=== PATIENT | female | born 1970 | race Caucasian/White ===

== ENCOUNTER → 2016-03-26 | Outpatient (REF) | payer OTHER | END | disposition home or self-care (01) | LOC: M SFHCWAGY 10:49 | PROVIDERS: ATTEND Nurse Practitioner Women's Health | DX: Z01.419 Encounter for gynecological examination (general) (routine) without abnormal findings (principal); Z11.51 Encounter for screening for human papillomavirus (HPV); R87.610 Atypical squamous cells of undetermined significance on cytologic smear of cervix (ASC-US) ==

== ENCOUNTER → 2016-03-29 | Outpatient (REF) | payer OTHER | END | disposition home or self-care (01) | LOC: M SFHCWAGY 14:23 | PROVIDERS: ATTEND Nurse Practitioner Women's Health | DX: R87.612 Low grade squamous intraepithelial lesion on cytologic smear of cervix (LGSIL) (principal) ==

== ENCOUNTER → 2016-08-06 | Outpatient (CLI) | payer BC, OTHER ==
--- NOTE | 2016-08-07 19:53 | REP ---
Whole body PET CT scan for restaging of B-cell lymphoma. Comparison as the whole-body PET scan dated 08/10/2015. The comparison study of 02/21/2016 is not available in the archive for review for reasons known to this examiner. Scanning is performed from skull base to the upper thighs. Neck and supraclavicular areas: There are no hypermetabolic foci. Chest: There are no hypermetabolic foci. Abdomen, pelvis and upper thighs: There are no hypermetabolic foci. There is physiologic radio labeling of the renal collecting systems. Impression: There are no hypermetabolic foci. The study is performed with 10.8 mCi of F 18 FDG Signed by Rolf Castillo MD 08/07/2016 07:45 P
== END ==
LOC: M PLARAD 11:18
PROVIDERS: ATTEND Internal Medicine Medical Oncology
DX: C85.10 Unspecified B-cell lymphoma, unspecified site (principal)
CPT/HCPCS: 78815; A9552

== ENCOUNTER → 2017-01-27 | Outpatient (CLI) | payer BC, OTHER ==
[~2017-01-27] MED LIST: NO MEDS
[2017-01-27 14:03] LABS: INR 1.01
[2017-01-27 14:36] LABS: ANION GAP 5 MEQ/L (8-16); BLOOD UREA NITROGEN 7 MG/DL (7-18); CALCIUM LEVEL 9.1 MG/DL (8.5-10.1); CARBON DIOXIDE LEVEL 31 MEQ/L (21-32); CHLORIDE LEVEL 107 MEQ/L (98-107); CREATININE FOR GFR 0.52 MG/DL (0.55-1.02); GLOMERULAR FILTRATION RATE > 60.0 (>58); GLUCOSE, FASTING 94 MG/DL (70-105); POTASSIUM SERUM 4.4 MEQ/L (3.5-5.1); SODIUM LEVEL 143 MEQ/L (136-145)
--- NOTE | 2017-01-27 16:01 | REP ---
Clinical: Ihbvkd-M-Ivcu removal . Comparison: 06/27/2015 . Technique: PA and lateral. Findings: The mediastinum and cardiac silhouette are normal. Right-sided Qufoon-F-Bqpy identified with tip in the SVC. The lung begum are clear and without acute consolidation, effusion, or pneumothorax. The skeletal structures are intact and normal. Impression: 1. No acute cardiopulmonary process. Signed by Patrice Wills MD 01/27/2017 03:52 P
== END ==
LOC: M SMT 10:47
PROVIDERS: ATTEND Thoracic Surgery (Cardiothoracic Vascular Surgery)
DX: Z01.818 Encounter for other preprocedural examination (principal)

== ENCOUNTER 2017-01-29 07:11 | Day surgery (SDC) | payer BC, OTHER ==
[~2017-01-29] VITALS: Ht 175.3 cm; Wt 72.6 kg
[2017-01-29] MEDS ORDERED: ceFAZolin 2 GM/D5W 50 ML IV BAG (J0690) As Ordered ONE (07:35)
[2017-01-29] MEDS ORDERED: MUPIROCIN 2% OINT 22 GM TUBE TOP ONE (07:45)
[2017-01-29] MEDS ORDERED: LR 1,000 ML IV ONE (08:00)
[2017-01-29] MEDS ORDERED: NS 1,000 ML IV ONE (08:00)
[2017-01-29] MEDS ORDERED: BUPIVACAINE LIPOSOME/PF 1.3% 20 ML VIAL (13.3MG/ML)(EXPAREL) As Ordered ONE (09:30)
[2017-01-29] MEDS ORDERED: MIDAZOLAM INJ 2 MG/2 ML VIAL (J2250) As Ordered ONE (09:52)
[2017-01-29] MEDS ORDERED: PROPOFOL 200 MG/20 ML VIAL As Ordered ONE ×2 (09:52→10:07)
[2017-01-29] MEDS ORDERED: fentaNYL 100 MCG/2 ML INJECTION (J3010) As Ordered ONE (09:52)
[2017-01-29 11:20] VITALS: BP 118/85
--- NOTE | 2017-01-29 11:44 | REP ---
CHEST, SINGLE VIEW: There is no evidence of acute infiltrate. No pleural effusion is seen. The heart is normal in size. The mediastinal silhouette is unremarkable. The visualized osseous structures are intact. IMPRESSION: No acute pulmonary disease. Signed by Rolf Simms MD 01/29/2017 01:54 P
--- NOTE | 2017-01-30 14:58 | RO ---
DATE OF PROCEDURE: 01/29/2017 PREPROCEDURE DIAGNOSIS: Lymphoma with completion of chemotherapy, retained Gsudhg-c-Jrij. POSTPROCEDURE DIAGNOSIS: Lymphoma with completion of chemotherapy, retained Xmajsy-p-Mama. PROCEDURE: Removal of right Tyamkj-a-Qqds. SURGEON: Dr. Jordon Farnsworth DREDGE PIPE INSTALLER: ANESTHESIA: DESCRIPTION OF PROCEDURE: Under satisfactory MAC anesthesia, the patient was prepped and draped in the usual sterile fashion. The Hjtkny-q-Oemf site was infiltrated with Exparel. Incision was made and carried down to the Amgedk-n-Lzgo. The neck of the Gspzfr-e-Kofz was easily found and the catheter secured. The catheter was removed without difficulty and the Tlmqnj-q-Zcdf was also removed from the pocket. The glistening capsule was then excised. After achieving adequate hemostasis, the subcutaneous tissue was closed with running #3-0 Vicryl suture, and the skin was closed with running #4-0 Monocryl subcuticular suture. The patient tolerated the procedure well and left the operating room in satisfactory condition for the recovery room.
== END 2017-01-29 11:24 | disposition home or self-care (01) ==
LOC: M SDC 07:11
PROVIDERS: ATTEND Thoracic Surgery (Cardiothoracic Vascular Surgery)
DX: C85.90 Non-Hodgkin lymphoma, unspecified, unspecified site (principal); Z45.2 Encounter for adjustment and management of vascular access device; Z92.21 Personal history of antineoplastic chemotherapy
CPT/HCPCS: 36590; 71010; J0690; J2250; J3010

== ENCOUNTER → 2017-04-01 | Outpatient (REF) | payer OTHER ==
[2017-04-04 14:13] LABS: HPV HYBRID CAPTURE II Negative (Negative)
== END ==
LOC: M SFHCWAGY 10:48
DX: Z12.4 Encounter for screening for malignant neoplasm of cervix (principal)

== ENCOUNTER → 2017-04-01 | Outpatient (CLI) | payer BC | LOC: M WHC 10:38 | DX: Z12.31 Encounter for screening mammogram for malignant neoplasm of breast (principal) | CPT/HCPCS: 77067 ==

== ENCOUNTER → 2017-07-15 | Outpatient (CLI) | payer BC, OTHER ==
[2017-07-15 10:59] LABS: HEMATOCRIT 43.8 % (36.0-47.0); HEMOGLOBIN 15.2 g/dl (12.0-15.5); MEAN CORPUSCULAR HGB CONC 34.7 g/dl (32.0-36.5); MEAN CORPUSCULAR VOLUME 86.6 fl (80.0-96.0); PLATELET COUNT, AUTOMATED 215 10^3/uL (150-450); RED BLOOD COUNT 5.06 10^6/uL (4.00-5.40); RED CELL DISTRIBUTION WIDTH 12.3 % (11.5-14.5); WHITE BLOOD COUNT 6.3 10^3/uL (4.0-10.0)
[2017-07-15 11:23] LABS: ALBUMIN 4.2 GM/DL (3.2-5.2); ALBUMIN/GLOBULIN RATIO 1.56 (1.00-1.93); ALKALINE PHOSPHATASE 80 U/L (45-117); ALT/SGPT 28 U/L (12-78); ANION GAP 3 MEQ/L (8-16); AST/SGOT 23 U/L (7-37); BILIRUBIN,TOTAL 0.4 MG/DL (0.2-1.0); BLOOD UREA NITROGEN 13 MG/DL (7-18); CALCIUM LEVEL 8.9 MG/DL (8.5-10.1); CARBON DIOXIDE LEVEL 30 MEQ/L (21-32); CHLORIDE LEVEL 110 MEQ/L (98-107); CHOLESTEROL LEVEL 176 MG/DL (<200); CHOLESTEROL RISK RATIO 2.885 (<5); CREATININE FOR GFR 0.62 MG/DL (0.55-1.30); GLOMERULAR FILTRATION RATE > 60.0 (>58); GLUCOSE, FASTING 93 MG/DL (70-100); HDL CHOLESTEROL 61 MG/DL (>40); LDL CHOLESTEROL 106.4 MG/DL (<100); NON-HDL-C 115 MG/DL; POTASSIUM SERUM 4.2 MEQ/L (3.5-5.1); SODIUM LEVEL 143 MEQ/L (136-145); THYROID STIMULATING HORMONE 0.675 uIU/ML (0.358-3.740); THYROXINE (T4) 10.4 UG/DL (4.5-12.0); TOTAL PROTEIN 6.9 GM/DL (6.4-8.2); TRIGLYCERIDES LEVEL 43 MG/DL (<150)
[2017-07-15 11:39] LABS: TOTAL 25(OH) VITAMIN D 29.5 NG/ML (30.0-100.0); TOTAL T3 94.6 NG/DL (60.0-181.0)
[2017-07-15 11:49] LABS: ERYTHROCYTE SEDIMENTATION RATE 3 mm/hr (0-20)
== END ==
LOC: M LAB 10:05
DX: I10 Essential (primary) hypertension (principal)
CPT/HCPCS: 71046

== ENCOUNTER → 2018-04-02 | Outpatient (CLI) | payer BC ==
--- NOTE | 2018-04-02 14:02 | REPMRS ---
Patient History The patient states she had a clinical breast exam in 03/2018. No known family history of cancer. Took hormonal contraceptives for 1 year 2 months. infusaport scar Digital Woman Screen Mammo: April 02, 2018 - Exam #: [id number] Bilateral CC and MLO view(s) were taken. Technologist: Romana Velasquez Technologist Prior study comparison: April 01, 2017, digital woman screen mammo performed at [facility] to [facility]. March 28, 2016, bilateral screening 3D/tomosynthesis, performed at [facility]. February 28, 2015, digital woman screen mammo performed at [facility]. FINDINGS: There are scattered fibroglandular densities. There has been no change in the appearance of the mammogram from the prior studies. There is a mild amount of scattered fibroglandular density which is fairly symmetric. There is no interval development of dominant mass, architectural distortion, or clustered microcalcification suggestive of malignancy. 3-D tomosynthesis shows no additional findings. Assessment: BI-RADS/ACR category 1 mammogram. Negative Mammogram. Recommendation Routine screening mammogram of both breasts in 1 year (for women over age 40). This patient's Lifetime Breast Cancer RIsk is estimated at 8.4 %. This mammogram was interpreted with the aid of an FDA-approved computer-aided dectection system. Electronically Signed By: Corby Garcia MD 04/02/18 [id number]
== END ==
LOC: M WHC 10:07
PROVIDERS: ATTEND Nurse Practitioner Women's Health
DX: Z12.31 Encounter for screening mammogram for malignant neoplasm of breast (principal)

== ENCOUNTER → 2018-04-02 | Outpatient (REF) | payer OTHER | LOC: M SFHCWAGY 10:27 | PROVIDERS: ATTEND Nurse Practitioner Women's Health | DX: Z12.4 Encounter for screening for malignant neoplasm of cervix (principal) ==

== ENCOUNTER → 2018-07-08 | Outpatient (REF) | payer OTHER ==
[~2018-07-08] MED LIST changes: +MULTCAP PO
== END ==
LOC: M SFHCPLAZ 17:37
PROVIDERS: ATTEND Dermatology
DX: D22.4 Melanocytic nevi of scalp and neck (principal)

== ENCOUNTER → 2018-07-13 | Outpatient (CLI) | payer BC, OTHER ==
[~2018-07-13] MED LIST changes: +ISOVUE-370 76% 100ML VIAL (Q9967) As Ordered ONE
--- NOTE | 2018-07-13 11:18 | REP ---
MAXILLOFACIAL CT STUDY WITH IV CONTRAST: HISTORY: Right maxillary pain at the site of a prior diffuse large B-cell lymphoma, rule out recurrence. Comparison MRI maxillofacial area January 29, 2016. CT CONTRAST DOSE: 75 mL of intravenous Isovue 370. FINDINGS: There are minimal mucosal thickening changes inferiorly in the right maxillary sinus. There is a stable 1 cm mucous retention cyst posteriorly in the right maxillary sinus, unchanged from the January 2016 MRI study. There is a small mucous retention cyst anteriorly and inferiorly in the left maxillary sinus. This measures 0.9 cm in greatest diameter. There is no evidence of soft tissue mass or bony erosive change in either maxillary sinus. The soft palate appears intact. No mandibular bony lesion is seen. The bony nasal septum deviates to the left with a fairly prominent septal beak. Ethmoid, sphenoid, and frontal sinuses are clear bilaterally. Mastoid aeration is normal and symmetric. No skull base lesion is appreciated. Tonsillar and peritonsillar soft tissues are symmetric. No adenopathy is observed in the upper neck. IMPRESSION: Minimal mucosal changes in the maxillary sinuses bilaterally. No soft tissue mass or bony destruction seen. Electronically Signed by Mina Garcia MD 07/13/2018 11:44 A
== END ==
LOC: M RAD 09:53
PROVIDERS: ATTEND Internal Medicine Medical Oncology
DX: R68.84 Jaw pain (principal); J34.1 Cyst and mucocele of nose and nasal sinus
CPT/HCPCS: 70487; Q9967

== ENCOUNTER → 2018-07-21 | Outpatient (CLI) | payer BC, OTHER ==
[~2018-07-21] MED LIST changes: -ISOVUE-370 76% 100ML VIAL (Q9967) As Ordered ONE
--- NOTE | 2018-07-21 10:49 | REP ---
PET/CT: History: Restaging diffuse large B-cell lymphoma of the hard palate. Comparisons: Comparison PET-CT studies are reviewed from August 06, 2016, February 21, 2016, August 10, 2015. Most recent maxillofacial CT study is from July 13, 2018. TECHNIQUE: 63 minutes following the intravenous injection of a 8.80 mCi dose of F-18 FDG, three-dimensional PET scintigraphy is acquired from the skull base to the proximal thighs. Triplanar noncontrast CT scanning is acquired through the same anatomic range for attenuation correction, and image registration with scan parameters optimized to minimize radiation exposure to the patient. PET scintigraphy and CT datasets were fused and displayed on a workstation with multiplanar and projection display capability. PET/CT Findings: Head and neck soft tissues remain unremarkable. No abnormal hypermetabolic uptake is seen in the chest abdomen or pelvis. No abnormal mya or extra mya uptake is seen. Impression: Negative PET scintigraphy. Electronically Signed by Mina Garcia MD 07/21/2018 10:40 A
== END ==
LOC: M PLARAD 07:16
PROVIDERS: ATTEND Internal Medicine Medical Oncology
DX: C85.90 Non-Hodgkin lymphoma, unspecified, unspecified site (principal)
CPT/HCPCS: 78815; A9552

== ENCOUNTER → 2018-12-16 | Outpatient (REF) | payer OTHER ==
[2018-12-16 11:01] LABS: CHOLESTEROL RISK RATIO 2.671 (<5); THYROID STIMULATING HORMONE 0.851 uIU/ML (0.358-3.740)
[2018-12-16 11:04] LABS: TOTAL 25(OH) VITAMIN D 35.7 NG/ML (30.0-100.0)
== END ==
LOC: M LAB REF 09:40
PROVIDERS: ATTEND Family Medicine
DX: D64.9 Anemia, unspecified (principal); R53.83 Other fatigue; E03.9 Hypothyroidism, unspecified

== ENCOUNTER → 2019-04-05 | Outpatient (CLI) | payer BC, OTHER ==
--- NOTE | 2019-04-05 11:50 | REPMRS ---
Patient History The patient states she had a clinical breast exam in 03/2019. Patient is postmenopausal, has history of other cancer at age 44, and had previous chemotherapy at age 44. No known family history of cancer. Took hormonal contraceptives for 1 year 2 months. 3D TOMOSYNTHESIS WAS PERFORMED. The [facility] lifetime risk for breast cancer is 7.1%. Digital Woman Screen Mammo: April 05, 2019 - Exam #: [id number] Bilateral CC and MLO view(s) were taken. Technologist: Yoselin West, Technologist Prior study comparison: April 02, 2018, bilateral digital woman screen mammo performed at [facility]. April 01, 2017, digital woman screen mammo performed at [facility]. March 28, 2016, bilateral screening 3D/tomosynthesis, performed at [facility]. FINDINGS: There are scattered fibroglandular densities. There has been no change in the appearance of the mammogram from the prior studies. There is a mild amount of residual fibroglandular tissue which is fairly symmetric. There is no interval development of dominant mass, architectural distortion, or clustered microcalcification suggestive of malignancy. Assessment: BI-RADS/ACR category 1 mammogram. Negative Mammogram. Recommendation Routine screening mammogram in 1 year (for women over age 40). This mammogram was interpreted with the aid of an FDA-approved computer-aided dectection system. Electronically Signed By: Rolf Simms MD 04/05/19 [id number]
== END ==
LOC: M WHC 09:49
PROVIDERS: ATTEND Nurse Practitioner Women's Health
DX: Z12.31 Encounter for screening mammogram for malignant neoplasm of breast (principal)
CPT/HCPCS: 77063; 77067; G0123

== ENCOUNTER → 2019-07-13 | Outpatient (CLI) | payer BC, OTHER ==
[2019-07-13 10:00] LABS: BASO # 0.1 10^3/uL (0.0-0.2); BASO % 1.5 % (0.0-1.0); EOS # 0.3 10^3/uL (0.0-0.5); EOS % 4.1 % (0.0-3.0); HEMATOCRIT 42.9 % (36.0-47.0); HEMOGLOBIN 14.2 g/dl (12.0-15.5); LYMPH # 1.8 10^3/uL (1.5-5.0); LYMPH % 28.1 % (24.0-44.0); MEAN CORPUSCULAR HEMOGLOBIN 29.1 pg (27.0-33.0); MEAN CORPUSCULAR HGB CONC 33.1 g/dl (32.0-36.5); MEAN CORPUSCULAR VOLUME 87.9 fl (80.0-96.0); MONO # 0.6 10^3/uL (0.0-0.8); MONO % 8.8 % (0.0-5.0); NEUTROPHILS # 3.7 10^3/uL (1.5-8.5); NEUTROPHILS % 57.3 % (36.0-66.0); PLATELET COUNT, AUTOMATED 238 10^3/uL (150-450); RED BLOOD COUNT 4.88 10^6/uL (4.00-5.40); WHITE BLOOD COUNT 6.5 10^3/uL (4.0-10.0)
[2019-07-13 10:28] LABS: ALBUMIN 4.2 GM/DL (3.2-5.2); ALT/SGPT 34 U/L (12-78); BILIRUBIN,TOTAL 0.5 MG/DL (0.2-1.0); BLOOD UREA NITROGEN 12 MG/DL (7-18); CALCIUM LEVEL 9.3 MG/DL (8.5-10.1); CARBON DIOXIDE LEVEL 31 MEQ/L (21-32); CHLORIDE LEVEL 106 MEQ/L (98-107); CREATININE FOR GFR 0.67 MG/DL (0.55-1.30); GLOMERULAR FILTRATION RATE > 60.0 (>58); GLUCOSE, FASTING 95 MG/DL (70-100); LDH LACTATE DEHYDROGENASE 159 U/L (84-246); SODIUM LEVEL 143 MEQ/L (136-145); TOTAL PROTEIN 6.7 GM/DL (6.4-8.2)
== END ==
LOC: M LAB 09:36
PROVIDERS: ATTEND Internal Medicine Medical Oncology
DX: C83.31 Diffuse large B-cell lymphoma, lymph nodes of head, face, and neck (principal)

== ENCOUNTER → 2019-12-22 | Outpatient (CLI) | payer BC, OTHER ==
[2019-12-22 09:22] LABS: HEMATOCRIT 46.7 % (36.0-47.0); HEMOGLOBIN 15.7 g/dl (12.0-15.5); MEAN CORPUSCULAR HEMOGLOBIN 29.5 pg (27.0-33.0); MEAN CORPUSCULAR HGB CONC 33.6 g/dl (32.0-36.5); MEAN CORPUSCULAR VOLUME 87.8 fl (80.0-96.0); PLATELET COUNT, AUTOMATED 239 10^3/uL (150-450); RED BLOOD COUNT 5.32 10^6/uL (4.00-5.40); WHITE BLOOD COUNT 6.1 10^3/uL (4.0-10.0)
[2019-12-22 09:42] LABS: ALBUMIN 4.2 GM/DL (3.2-5.2); ALT/SGPT 27 U/L (12-78); BILIRUBIN,TOTAL 0.7 MG/DL (0.2-1.0); BLOOD UREA NITROGEN 13 MG/DL (7-18); CALCIUM LEVEL 9.7 MG/DL (8.5-10.1); CARBON DIOXIDE LEVEL 25 MEQ/L (21-32); CHLORIDE LEVEL 107 MEQ/L (98-107); CHOLESTEROL LEVEL 193 MG/DL (<200); CHOLESTEROL RISK RATIO 3.063 (<5); CREATININE FOR GFR 0.71 MG/DL (0.55-1.30); GLOMERULAR FILTRATION RATE > 60.0 (>58); GLUCOSE, FASTING 89 MG/DL (70-100); HDL CHOLESTEROL 63 MG/DL (>40); LDL CHOLESTEROL 118 MG/DL (<100); NON-HDL-C 130 MG/DL; POTASSIUM SERUM 4.5 MEQ/L (3.5-5.1); SODIUM LEVEL 138 MEQ/L (136-145); THYROID STIMULATING HORMONE 0.791 uIU/ML (0.358-3.740); TRIGLYCERIDES LEVEL 59 MG/DL (<150)
--- NOTE | 2019-12-22 10:13 | ECGEPIP ---
[facility] Test Date: 2019-12-22 Pat Name: MAURICE MULLINS Department: Room: - Gender: Female Video Tape Duplicator: RF : 1970 Requested By: Derek Sheikh Order Number: [id number] Reading MD: Kennedi Edward Measurements Intervals [place] Rate: 64 P: 3 ND: 158 QRS: -16 QRSD: 86 T: 27 QT: 369 QTc: 381 Interpretive Statements SINUS RHYTHM PRIOR WITH L AXIS 07/15/17 Electronically Signed on 12-22-2019 10:12:53 EDT by Kennedi Edward
[2019-12-22 10:35] LABS: TOTAL 25(OH) VITAMIN D 57.8 NG/ML (30.0-100.0)
--- NOTE | 2019-12-27 07:55 | REP ---
CHEST XRAY: 12/22/19 CLINICAL: Hypothyroidism. TECHNIQUE: PA and lateral. COMPARISON: 07/15/17. FINDINGS: Mediastinum and cardiac silhouette are normal. The lung begum are clear. No consolidation, effusion, or pneumothorax. Skeletal structures intact. IMPRESSION: Normal chest x-ray. No acute cardiopulmonary process or focal consolidation. MTDD
== END ==
LOC: M LAB 08:18
PROVIDERS: ATTEND Family Medicine
DX: R53.83 Other fatigue (principal); E03.9 Hypothyroidism, unspecified

== ENCOUNTER → 2020-04-07 | Outpatient (CLI) | payer BC, OTHER ==
--- NOTE | 2020-04-07 12:45 | REPMRS ---
Patient History The patient states she had a clinical breast exam in March 2020. No known family history of cancer. Took hormonal contraceptives for 1 year 2 months. Digital Woman Screen Mammo: April 07, 2020 - Exam #: [id number] Bilateral CC and MLO view(s) were taken. Technologist: Malini Thomas, Technologist Prior study comparison: April 05, 2019, bilateral digital woman screen mammo performed at [facility]. April 02, 2018, bilateral digital woman screen mammo performed at [facility]. April 01, 2017, digital woman screen mammo performed at [facility]. FINDINGS: There are scattered fibroglandular densities. The Volpara volumetric breast density category is:B. There has been no change in the appearance of the mammogram from the prior studies. There is a mild amount of scattered fibroglandular density which is fairly symmetric. There is no interval development of dominant mass, architectural distortion, or grouped microcalcification suggestive of malignancy. 3-D tomosynthesis shows no additional findings. Assessment: BI-RADS/ACR category 1 mammogram. Negative Mammogram. Recommendation Routine screening mammogram of both breasts in 1 year (for women over age 40). This patient's [facility] Lifetime Breast Cancer Risk is estimated at 7.0 %. This mammogram was interpreted with the aid of an FDA-approved computer-aided dectection system. Electronically Signed By: Corby Garcia MD 04/07/20 [id number]
== END ==
LOC: M WHC 11:01
PROVIDERS: ATTEND Nurse Practitioner Women's Health
DX: Z12.31 Encounter for screening mammogram for malignant neoplasm of breast (principal)

== ENCOUNTER → 2020-04-07 | Outpatient (REF) | payer OTHER | LOC: M SFHCWAGY 17:04 | PROVIDERS: ATTEND Nurse Practitioner Women's Health | DX: Z12.4 Encounter for screening for malignant neoplasm of cervix (principal) ==

== ENCOUNTER → 2021-01-09 | Outpatient (CLI) | payer BC, OTHER ==
[~2021-01-09] MED LIST changes: +COVI30VI IM; +MULT-90 PO
[2021-01-09 11:43] LABS: HEMATOCRIT 43.5 % (36.0-47.0); HEMOGLOBIN 14.8 g/dl (12.0-15.5); MEAN CORPUSCULAR HEMOGLOBIN 29.9 pg (27.0-33.0); MEAN CORPUSCULAR VOLUME 87.9 fl (80.0-96.0); PLATELET COUNT, AUTOMATED 241 10^3/uL (150-450); RED BLOOD COUNT 4.95 10^6/uL (4.00-5.40); WHITE BLOOD COUNT 5.6 10^3/uL (4.0-10.0)
[2021-01-09 12:00] LABS: HEMOGLOBIN A1c 5.2 %
[2021-01-09 12:27] LABS: ALBUMIN 4.2 GM/DL (3.2-5.2); ALT/SGPT 25 U/L (12-78); BILIRUBIN,TOTAL 0.6 MG/DL (0.2-1.0); BLOOD UREA NITROGEN 11 MG/DL (7-18); CALCIUM LEVEL 9.8 MG/DL (8.5-10.1); CARBON DIOXIDE LEVEL 30 MEQ/L (21-32); CHLORIDE LEVEL 107 MEQ/L (98-107); CHOLESTEROL LEVEL 166 MG/DL (<200); CHOLESTEROL RISK RATIO 3.018 (<5); CREATININE FOR GFR 0.59 MG/DL (0.55-1.30); GLOMERULAR FILTRATION RATE > 60.0 (>58); GLUCOSE, FASTING 90 MG/DL (70-100); HDL CHOLESTEROL 55 MG/DL (>40); LDL CHOLESTEROL 100 MG/DL (<100); NON-HDL-C 111 MG/DL; POTASSIUM SERUM 4.2 MEQ/L (3.5-5.1); SODIUM LEVEL 141 MEQ/L (136-145); THYROID STIMULATING HORMONE 0.336 uIU/ML (0.358-3.740); TOTAL 25(OH) VITAMIN D 60.4 NG/ML (30.0-100.0); TOTAL PROTEIN 6.8 GM/DL (6.4-8.2); TRIGLYCERIDES LEVEL 56 MG/DL (<150)
--- NOTE | 2021-01-09 13:21 | REP ---
INDICATION: ANEMIA-EKG AND LABS AFTER XRAY. COMPARISON: 12/22/2019 TECHNIQUE: PA and lateral FINDINGS: The superior mediastinal structures are midline. The cardiac silhouette is unremarkable in size, shape, and position. The diaphragmatic surfaces of the lungs are regular, and the costophrenic angles are clear. The pulmonary begum are clear. The imaged osseous structures are intact. IMPRESSION: There is no acute cardiopulmonary disease. <Electronically signed by Manny Munoz > 01/09/21 [id number]
--- NOTE | 2021-01-09 21:28 | ECGEPIP ---
[facility] Test Date: 2021-01-09 Pat Name: MAURICE MULLINS Department: Room: - Gender: Female Lathe Operator: SHAY : 1970 Requested By: Derek Sheikh Order Number: [id number] Reading MD: Katharine Awad Measurements Intervals [place] Rate: 61 P: 32 IA: 168 QRS: 1 QRSD: 82 T: 37 QT: 378 QTc: 380 Interpretive Statements Normal sinus rhythm SIMILAR TO 12/22/19 Electronically Signed on 01-09-2021 21:27:39 EDT by Katharine Awad
== END ==
LOC: M RAD 09:48
PROVIDERS: ATTEND Family Medicine
DX: D64.9 Anemia, unspecified (principal)

== ENCOUNTER → 2021-02-16 | Outpatient (CLI) | payer BC, OTHER ==
[2021-02-16 12:33] LABS: BASO # 0.1 10^3/uL (0.0-0.2); BASO % 1.5 % (0.0-1.0); EOS # 0.2 10^3/uL (0.0-0.5); EOS % 1.7 % (0.0-3.0); HEMATOCRIT 43.8 % (36.0-47.0); HEMOGLOBIN 14.8 g/dl (12.0-15.5); LYMPH # 2.1 10^3/uL (1.5-5.0); LYMPH % 23.2 % (24.0-44.0); MEAN CORPUSCULAR HEMOGLOBIN 29.8 pg (27.0-33.0); MEAN CORPUSCULAR HGB CONC 33.8 g/dl (32.0-36.5); MEAN CORPUSCULAR VOLUME 88.1 fl (80.0-96.0); MONO # 0.7 10^3/uL (0.0-0.8); MONO % 7.5 % (2.0-8.0); NEUTROPHILS # 6.1 10^3/uL (1.5-8.5); NEUTROPHILS % 65.9 % (36.0-66.0); PLATELET COUNT, AUTOMATED 279 10^3/uL (150-450); RED BLOOD COUNT 4.97 10^6/uL (4.00-5.40); WHITE BLOOD COUNT 9.2 10^3/uL (4.0-10.0)
[2021-02-16 12:59] LABS: ALBUMIN 4.4 GM/DL (3.2-5.2); ALT/SGPT 26 U/L (12-78); BILIRUBIN,TOTAL 0.4 MG/DL (0.2-1.0); BLOOD UREA NITROGEN 15 MG/DL (7-18); CARBON DIOXIDE LEVEL 30 MEQ/L (21-32); CHLORIDE LEVEL 106 MEQ/L (98-107); CREATININE FOR GFR 0.64 MG/DL (0.55-1.30); GLOMERULAR FILTRATION RATE > 60.0 (>58); GLUCOSE, FASTING 92 MG/DL (70-100); LDH LACTATE DEHYDROGENASE 151 U/L (84-246); POTASSIUM SERUM 4.2 MEQ/L (3.5-5.1); SODIUM LEVEL 142 MEQ/L (136-145); TOTAL PROTEIN 7.1 GM/DL (6.4-8.2)
== END ==
LOC: M LAB 11:24
PROVIDERS: ATTEND Specialist
DX: C85.10 Unspecified B-cell lymphoma, unspecified site (principal)

== ENCOUNTER → 2021-05-18 | Outpatient (CLI) | payer BC, OTHER | LOC: M WHC 14:22 | PROVIDERS: ATTEND Obstetrics & Gynecology | DX: Z12.31 Encounter for screening mammogram for malignant neoplasm of breast (principal) ==

== ENCOUNTER → 2021-08-21 | Outpatient (CLI) | payer BC, OTHER ==
[2021-08-21 11:44] LABS: BASO # 0.2 10^3/uL (0.0-0.2); BASO % 2.2 % (0.0-1.0); EOS # 0.2 10^3/uL (0.0-0.5); EOS % 2.3 % (0.0-3.0); HEMATOCRIT 47.3 % (36.0-47.0); HEMOGLOBIN 15.7 g/dl (12.0-15.5); LYMPH # 1.8 10^3/uL (1.5-5.0); MEAN CORPUSCULAR HEMOGLOBIN 29.1 pg (27.0-33.0); MEAN CORPUSCULAR HGB CONC 33.2 g/dl (32.0-36.5); MEAN CORPUSCULAR VOLUME 87.8 fl (80.0-96.0); MONO # 0.7 10^3/uL (0.0-0.8); NEUTROPHILS # 4.6 10^3/uL (1.5-8.5); NEUTROPHILS % 62.2 % (36.0-66.0); PLATELET COUNT, AUTOMATED 264 10^3/uL (150-450); RED BLOOD COUNT 5.39 10^6/uL (4.00-5.40); WHITE BLOOD COUNT 7.3 10^3/uL (4.0-10.0)
[2021-08-21 12:08] LABS: ALBUMIN 4.2 GM/DL (3.2-5.2); ALT/SGPT 25 U/L (12-78); BILIRUBIN,TOTAL 0.5 MG/DL (0.2-1.0); BLOOD UREA NITROGEN 10 MG/DL (7-18); CALCIUM LEVEL 9.2 MG/DL (8.5-10.1); CARBON DIOXIDE LEVEL 30 MEQ/L (21-32); CHLORIDE LEVEL 108 MEQ/L (98-107); CREATININE FOR GFR 0.68 MG/DL (0.55-1.30); GLOMERULAR FILTRATION RATE > 60.0 (>58); GLUCOSE, FASTING 87 MG/DL (70-100); LDH LACTATE DEHYDROGENASE 156 U/L (84-246); POTASSIUM SERUM 3.9 MEQ/L (3.5-5.1); SODIUM LEVEL 141 MEQ/L (136-145); TOTAL PROTEIN 7.1 GM/DL (6.4-8.2)
== END ==
LOC: M LAB 10:42
PROVIDERS: ATTEND Specialist
DX: C85.90 Non-Hodgkin lymphoma, unspecified, unspecified site (principal)

== ENCOUNTER → 2022-05-28 | Outpatient (CLI) | payer BC, OTHER | LOC: M WHC 10:35 | PROVIDERS: ATTEND Obstetrics & Gynecology | DX: Z12.31 Encounter for screening mammogram for malignant neoplasm of breast (principal) ==

== ENCOUNTER → 2022-05-28 | Outpatient (REF) | payer OTHER | LOC: M PLALAB 11:07 | PROVIDERS: ATTEND Obstetrics & Gynecology | DX: Z01.419 Encounter for gynecological examination (general) (routine) without abnormal findings (principal); R87.610 Atypical squamous cells of undetermined significance on cytologic smear of cervix (ASC-US) | CPT/HCPCS: 87624; G0123 ==

== ENCOUNTER → 2022-06-26 | Outpatient (CLI) | payer BC, OTHER | LOC: M RAD 11:54 | PROVIDERS: ATTEND Family Medicine | DX: I89.0 Lymphedema, not elsewhere classified (principal); M25.511 Pain in right shoulder ==

== ENCOUNTER 2023-01-06 11:42 | Day surgery (SDC) | payer BC, OTHER ==
[~2023-01-06] VITALS: Ht 170.2 cm; Wt 65.7 kg
[~2023-01-06 11:42] MED LIST changes: +NS 1,000 ML IV ONE
[2023-01-06] MEDS ORDERED: propofoL 200 MG/20 ML VIAL As Ordered ONE (14:12)
[2023-01-06] MEDS ORDERED: LIDOCAINE 2% 100MG/5ML SDV (FOR ANES.) As Ordered ONE (14:13)
[2023-01-06 15:03] VITALS: BP 122/71; TEMP 97.9; O2SAT 98
== END 2023-01-06 15:06 | disposition home or self-care (01) ==
LOC: M OPP 11:42
PROVIDERS: ATTEND Internal Medicine Gastroenterology
DX: Z12.11 Encounter for screening for malignant neoplasm of colon (principal); K64.0 First degree hemorrhoids

== ENCOUNTER → 2023-04-17 | Outpatient (CLI) | payer BC, OTHER ==
[~2023-04-17] MED LIST changes: -NS 1,000 ML IV ONE
== END ==
LOC: M RAD 09:35
PROVIDERS: ATTEND Family Medicine
DX: D64.9 Anemia, unspecified (principal); R53.83 Other fatigue

== ENCOUNTER → 2024-01-13 | Outpatient (CLI) | payer BC | LOC: M WHC 09:28 | PROVIDERS: ATTEND Family Medicine | DX: M81.0 Age-related osteoporosis without current pathological fracture (principal) ==

== ENCOUNTER → 2024-01-23 | Outpatient (CLI) | payer BC | LOC: M WHC 13:42 | PROVIDERS: ATTEND Obstetrics & Gynecology | DX: Z12.31 Encounter for screening mammogram for malignant neoplasm of breast (principal) ==

== ENCOUNTER → 2024-01-23 | Outpatient (REF) | payer BC ==
[2024-01-27 12:51] LABS: HPV APTIMA Not Detected (Not Detected)
== END ==
LOC: M PLALAB 15:19
PROVIDERS: ATTEND Obstetrics & Gynecology
DX: Z01.419 Encounter for gynecological examination (general) (routine) without abnormal findings (principal)